=== PATIENT | male | born 1960 | race Two or more races ===

== ENCOUNTER 2024-07-12 00:15 | Emergency (ER) | payer MEDICARE, MEDICAID, SELFPAY ==
[2024-07-12] VITALS (33 sets, daily range): BP systolic 128–166; BP diastolic 60–83; PULSE 69–86; RESP 15–30; TEMP 35.8–36.9; O2SAT 93–100
--- NOTE | 2024-07-12 | XR_ITS ---
Examination: IR placement temporary dialysis catheter. Ultrasound-guided needle placement right subclavian vein. Fluoroscopy AP Chest, portable single view Exam date and time: July 12, 2024 0910 hours INDICATIONS: Patient's fistula is clotted, patient requires stat dialysis. Informed consent provided Technique: A timeout was completed, verifying correct patient, procedure, site, positioning, and special equipment if applicable The patient was placed in a dependent position appropriate for dialysis catheter placement based on the vein to be cannulated. The patient's right neck and chest was prepped and draped in sterile fashion. Maximum Sterile Barrier Technique used including cap, mask, sterile gown, sterile gloves, and sterile full body drape. If ultrasound technique used: sterile gel and sterile probe covers. Hand Hygiene performed using proper scrub, soap and water, or alcohol-based hand rub. Site right portable apparatus utilized to confirm patency of the right subclavian vein Utilizing ultrasonographic guidance successful 21-gauge needle puncture into the right subclavian vein Ultrasound images were recorded and stored. Successful micropuncture with a 21-gauge needle was performed. 0.18 wire guide was introduced into the IVC under fluoroscopic guidance. The wires is then exchanged for a 0.25 J-wire guide placed in the vena cava. Dilators placed over the wire guide followed by a 24 cm 11 Greenlandic temporary dialysis catheter in proper position in the SVC Successful aspiration of blood and flushing with heparinized saline is then performed in the 3 venous limbs. The catheter is sutured in place to the skin and a sterile dressing applied. Perfusion to the extremity distal to the point of catheter insertion was checked and found to be adequate The attending radiologist was present for the entire procedure Estimated blood loss1 cc. Findings: Under fluoroscopy, the tip of the catheter is in good position in the vena cava. Portable chest x-ray, post dialysis catheter placement, as ordered. Impression: Successful ultrasound-guided needle placement right subclavian vein. Successful temporary dialysis catheter insertion. Fluoroscopy 0.1 minute radiation dose 2.07 milligray 1 spot fluoroscopic chest film. AP portable chest completion procedure demonstrates satisfactory position dialysis catheter tip SVC. May use dialysis catheter
[2024-07-12 02:10] LABS: Basophils # (Auto) 0.1 Thou/mm3 (0.0-0.2); Basophils % (Auto) 1 % (0-2.5); Eosinophils # (Auto) 0.6 Thou/mm3 (0.0-0.5); Eosinophils % (Auto) 8 % (0-10); Hematocrit 25.4 % (41.0-53.0); Hemoglobin 9.4 g/dL (13.5-16.0); Immature Granulocytes % (Auto) 0 % (0-0); Immature Granulocytes Auto 0.01 Thou/mm3 (0.00-0.00); Lymphocytes % (Auto) 49 % (10-50); Mean Corpuscular Hemoglobin 33.6 pg (25.0-35.0); Mean Corpuscular Volume 91 fL (80-100); Monocytes % (Auto) 13 % (0-12); Neutrophils # (Auto) 2.3 Thou/mm3 (1.8-7.7); Neutrophils % (Auto) 29 % (37-80); Nucleated Red Blood Cell % 0 /100 WBC (0); Platelet Count 193 Thou/mm3 (140-440); RDW Standard Deviation 39.9 fL (35.1-43.9)
[2024-07-12 02:26] LABS: Alanine Aminotransferase < 7 U/L (10-49); Albumin, Serum 4.3 gm/dL (3.4-4.8); Albumin/Globulin Ratio 1.4 (1.2-2.2); Alkaline Phosphatase 87 U/L (46-116); Anion Gap 16 (7-16); Aspartate Amino Transferase 23 U/L (0-34); BUN/Creatinine Ratio 10 Ratio (12-20); Bilirubin,Total 0.2 mg/dL (0.3-1.2); Blood Urea Nitrogen 94 mg/dL (9-23); Calcium 8.3 mg/dL (8.3-10.6); Calcium (Corrected) 8.3 mg/dL (8.5-10.1); Chloride 97 mMol/L (98-107); Creatinine (Component) 9.4 mg/dL (0.6-1.3); Globulin 3.1 gm/dL (2.3-3.5); Glucose 158 mg/dL (74-106); Osmolality,Calculated 307 (275-295); Potassium 3.6 mMol/L (3.4-5.1); Sodium 138 mMol/L (136-145); Total Protein 7.4 gm/dL (5.7-8.2); eGFR 6 See Note
--- NOTE | 2024-07-12 02:47 | PD.EDADULT ---
ED General RME/HPI General Chief complaint: General Adult/Misc Complain Stated complaint: AMS Time Seen by Provider: 07/12/24 02:47 Arrival date/time: 07/12/24 00:15 Limitations: no limitations RME / HPI RME / HPI narrative: Dr. Lombardi's Main ED Evaluation: 64yo male RYDER from home presents to the ED for AMS. Per EMS, blood sugar was 37 and patient was given D10 en route. Patient's states he only got an hour of dialysis yesterday due to there being something in the fistula . notes the patient has been short of breath. Daughter states the patient has had the fistula for a year and a half and had a recent routine cleaning of the fistula on Monday. They deny cough, congestion, fever, chills or any other associated symptoms. Claims Specialist is Dr. Ayala. Patient follows Dr. Samayoa at [facility] in [place]. 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, HTN, HLD, CAD s/p stent, DM2 with neuropathy, ESRD (//Mon) Related Data Home Medications ?Medication ?Instructions ?Recorded ?Confirmed atorvastatin 80 mg tablet 80 mg PO QPM 01/14/23 08/03/23 carvedilol 25 mg tablet 25 mg PO BID 01/14/23 08/03/23 glipizide 5 mg tablet 5 mg PO BID 01/14/23 08/03/23 losartan 25 mg tablet 25 mg PO QDAY 01/14/23 08/03/23 omega 5-sjf-ohh-fish oil 900 1 cap PO QDAY 01/14/23 08/03/23 mg-1,400 mg capsule,delayed release B-complex with vitamin C 1 tab PO QDAY 08/01/23 08/03/23 amlodipine 10 mg tablet 10 mg PO QDAY 08/01/23 08/03/23 aspirin 81 mg tablet,delayed 81 mg PO QDAY 08/01/23 08/03/23 release calcium acetate 667 mg tablet 667 mg PO TID 08/01/23 08/03/23 ergocalciferol (vitamin D2) 1,250 1,250 mcg PO QWEEK 01/09/24 01/09/24 mcg (50,000 unit) capsule (Drisdol) Previous Rx's ?Medication ?Instructions ?Recorded pantoprazole 40 mg granules 40 mg PO BID 30 days #60 ea 01/04/23 delayed-release for susp in packet (Protonix) Allergies Allergy/AdvReac Type Severity Reaction Status Date / Time levofloxacin Allergy Severe Rash Verified 08/03/23 06:46 Review of Systems Review of Systems Systems Reviewed: All systems reviewed, normal except as documented Past Medical History Past Medical History NEUROLOGIC: Positive Neurological Disorders and Cerebrovascular Accident (right sided weakness, face droop, speech, dysphagia); Negative Seizures CARDIAC: Positive Cardiac Disorders, Myocardial Infarction, Coronary Artery Disease, Atherosclerotic Heart Disease, Hypercholesterolemia, Congestive Heart Failure and Hypertension RESPIRATORY: Negative Chronic Obstructive Pulmonary Disease (COPD) GASTROINTESTINAL: Positive Gastrointestinal Disorders, Ulcer and Obesity GENITOURINARY: Positive Genitourinary Disorders, Renal Disease and Dialysis (//Mon) MUSCULOSKELETAL: Negative Musculoskeletal Disorders ENT: Positive Cataracts ENDOCRINE: Positive Endocrine Disorders and Diabetes Mellitus Type 2; Negative Diabetes Mellitus Type 1 HEMATOLOGIC: Negative Blood Disorders PSYCHO/SOCIAL: Positive Anxiety OTHER HISTORY: Positive Hospitalization (stroke, surgeries); Negative Autoimmune Disease, Shingles or Cancer Family History FAMILY HISTORY: Negative Family Psychiatric Problems, Family Respiratory Disorders, Family Cardiac Disorders, Family Gastrointestinal Problems, Family Cancer, Family Surgery or Family Anesthesia Reaction Surgical History SURGICAL: Positive Cardiac Surgery (coronary bypass one vessel), Coronary Stent and Pacemaker Social History SMOKING STATUS: Unknown if ever smoked ED Exam General Limitations: Present no limitations General appearance: Present in no apparent distress and other (appears slightly confused, but is able to answer questions; no facial droop; recognizes his ) Head Head exam: Present atraumatic Eye Eye exam: Present normal appearance, PERRL and EOMI ENT ENT exam: Present normal exam, normal oropharynx and mucous membranes moist Neck Neck exam: Present normal inspection, full ROM and trachea midline Chest Chest inspection: Present normal inspection and symmetric chest wall rise Respiratory Respiratory exam: Present normal lung sounds bilaterally Cardiovascular Cardiovascular exam: Present regular rate, normal rhythm and normal heart sounds; Absent systolic murmur or diastolic murmur Abdominal Exam Abdominal exam: Present soft and normal bowel sounds; Absent tenderness Extremities Exam Extremities exam: Present full ROM, normal capillary refill and other (left antecubital fistula does not have a very strong thrill); Absent pedal edema Back Exam Back exam: Present normal inspection and full ROM Neurological Exam Neurological exam: Present alert, oriented X3 and CN II-XII intact Psychiatric Psychiatric exam: Present normal affect and normal mood Skin Skin exam: Present warm, dry, intact and normal color; Absent rash Course Course Course Narrative: CXR is ordered for determining the etiology of shortness of breath. Quality Measures none Orders Category Date Time Status EKG (ED ONLY) *Do not use* NOW Care 07/12/24 00:25 Completed CXRP [XR chest 1V portable] Stat Exams 07/12/24 05:24 Taken EKG (ED Only) Stat Exams 07/12/24 00:25 Ordered US duplex arterial venous comp Stat Exams 07/12/24 04:57 Ordered ABG [Arterial Blood Gas] Stat Lab 07/12/24 03:31 Completed CBC Stat Lab 07/12/24 01:30 Completed CMP [Comprehensive Metabolic Panel] Stat Lab 07/12/24 01:30 Completed Phosphorous Stat Lab 07/12/24 01:30 Completed Dextrose 50% Syr [D50w Syringe Abboject] Med 07/12/24 02:59 Discontinued 50 ml IV X1 ONE Vital Signs Vital signs: Vital Signs Temperature 96.5 F L 07/12/24 00:19 Pulse Rate 71 07/12/24 00:19 Respiratory Rate 15 07/12/24 00:19 Blood Pressure 147/69 H 07/12/24 00:19 Pulse Oximetry (%) 98 07/12/24 00:19 Oxygen Delivery Method Room Air 07/12/24 00:19 Pulse ox is 100% on room air, which is normal according to my interpretation. 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 CXR shows cardiomegaly and pacemaker in place, but no CHF, no pneumothorax, no infiltrate, according to my interpretation. EKG done at 0027, NSR, rate of 69, low voltage, no peak T waves, T-wave inversion in V2, no ST elevations or depressions, likely from old infarct, similar to previous EKG, according to my interpretation. Medications Medications considered but not ordered:: none Medication administrations:: Medication Administration History Discontinued Medications Dextrose (Dextrose 50%-Water Inj 50 Ml Syringe) 50 ml IV X1 ONE Stop: 07/12/24 03:00 Last Admin: 07/12/24 03:04 Dose: 50 ml Documented By: SF see above, if any Consultations Consultation(s) initiated? (list below): No Diagnosis Differential Diagnosis ED Complaint MDM: CHF, dialysis catheter blockage, pneumonia, sepsis, hypoglycemia Most likely diagnosis given after review of the tests above:: Other DDx: electrolyte abnormality, HTN emergency versus urgency, anemia Final Dx: see below Admission Indicated Admission indicated?: not indicated Explain why admission is indicated or not indicated:: Admission criteria is not indicated. Admission Request Was there a request for admission?: No Disposition Plan Disposition Plan: other (specify) (Signed out to Dr. Perales at 0600 pending US.) Medical Decision Making Differential Diagnosis Differential Diagnosis: CHF, dialysis catheter blockage, pneumonia, sepsis, hypoglycemia Lab Data 07/12/24 01:30 07/12/24 01:30 Labs: Lab Results 07/12/24 07/12/24 Range/Units 01:30 03:31 WBC 8.0 (3.8-10.6) Thou/mm3 RBC 2.80 L (4.50-5.90) Miln/mm3 Hgb 9.4 L (13.5-16.0) g/dL Hct 25.4 L (41.0-53.0) % MCV 91 (80-100) fL MCH 33.6 (25.0-35.0) pg MCHC 37.0 (31.0-37.0) g/dl RDW Std Deviation 39.9 (35.1-43.9) fL Plt Count 193 (140-440) Thou/mm3 Neut % (Auto) 29 L (37-80) % Lymph % (Auto) 49 (10-50) % Placer % (Auto) 13 H (0-12) % Eos % (Auto) 8 (0-10) % Baso % (Auto) 1 (0-2.5) % Neut # (Auto) 2.3 (1.8-7.7) Thou/mm3 Lymph # (Auto) 4.0 (1.0-4.8) Thou/mm3 Placer # (Auto) 1.0 H (0.0-0.8) Thou/mm3 Eos # (Auto) 0.6 H (0.0-0.5) Thou/mm3 Baso # (Auto) 0.1 (0.0-0.2) Thou/mm3 Immature Gran # (Auto) 0.01 H (0.00-0.00) Thou/mm3 Absolute Nucleated RBC 0.00 (0.00-0.00) Thou/mm3 Immature Gran % 0 (0-0) % Nucleated RBC % 0 (0) /100 WBC Puncture Site Right Radial ABG pH 7.41 (7.35-7.45) ABG pCO2 43 (32.0-48.0) mmHg ABG pO2 49 L* (83-108) mmHg ABG HCO3 27 H (20-26) mEq/L ABG O2 Saturation 85 L (91-98) % ABG Base Excess 2 (-3-3) FiO2 21 % Sodium 138 (136-145) mMol/L Potassium 3.6 (3.4-5.1) mMol/L Chloride 97 L (98-107) mMol/L Carbon Dioxide 25.0 (20.0-31.0) mMol/L Anion Gap 16 (7-16) BUN 94 H (9-23) mg/dL Creatinine 9.4 H* (0.6-1.3) mg/dL Estim Creat Clear Calc Not Performed. eGFR 6 L* (60 - ) See Note BUN/Creatinine Ratio 10 L (12-20) Ratio Glucose 158 H (74-106) mg/dL Calculated Osmolality 307 H (275-295) Calcium 8.3 (8.3-10.6) mg/dL Corrected Calcium 8.3 L (8.5-10.1) mg/dL Phosphorus 5.5 H (2.4-5.1) mg/dL Total Bilirubin 0.2 L (0.3-1.2) mg/dL AST 23 (0-34) U/L ALT < 7 L (10-49) U/L Alkaline Phosphatase 87 (46-116) U/L Total Protein 7.4 (5.7-8.2) gm/dL Albumin 4.3 (3.4-4.8) gm/dL Globulin 3.1 (2.3-3.5) gm/dL Albumin/Globulin Ratio 1.4 (1.2-2.2) Critical Care Time Critical Care Time Critical Care Time: Yes Total Critical Care Time (min.): 45 Attestation: The high probability of sudden, clinically significant deterioration in the patient?s condition required the highest level of my preparedness to intervene urgently. The services I provided to this patient were to treat and/or prevent clinically significant deterioration. Services included the following: chart data review, reviewing nursing notes and/or old charts, documentation time, configuration management consultant collaboration regarding findings and treatment options, medication orders and management, direct patient care, vital sign assessments and ordering, interpreting and reviewing diagnostic studies and lab tests. Aggregate critical care time includes only time during which I was engaged in work directly related to the patient?s care, as described above, whether at bedside or elsewhere in the Emergency Department. It did not include time spent performing other reported procedures or the services of residents, students, nurses or physician assistants. Discharge Plan Plan Disposition Comment: Stable at sign out Patient condition on transfer: Stable Prescriptions/Referrals Prescriptions/Med Rec: No Action pantoprazole [Protonix] [address] for susp in packet 40 mg PO BID 30 Days Qty: 60 2RF atorvastatin 80 mg Tablet 80 mg PO QPM carvedilol 25 mg Tablet 25 mg PO BID Rx Instructions: must administer with a meal/food losartan 25 mg Tablet 25 mg PO QDAY glipizide 5 mg Tablet 5 mg PO BID omega 4-llr-ixc-fish oil 900-1,400 mg Capsule,Delayed Release(Dr/Ec) 1 cap PO QDAY aspirin 81 mg Tablet,Delayed Release (Dr/Ec) 81 mg PO QDAY amlodipine 10 mg Tablet 10 mg PO QDAY ergocalciferol (vitamin D2) [Drisdol] 1,250 mcg (50,000 unit) Capsule 1,250 mcg PO QWEEK B-complex with vitamin C Tablet 1 tab PO QDAY calcium acetate 667 mg Tablet 667 mg PO TID Referrals: Michael Lopes MD [Primary Care Provider] - In 1 week Problem List Clinical Impression: ESRD (end stage renal disease) Patient/Caregiver Discharge Instructions Print Language: Occitan
[2024-07-12] MEDS: DEXTROSE 50%-WATER INJ 50 ML SYRINGE IV (03:04)
[2024-07-12 03:41] LABS: Base Excess 2 (-3-3); HCO3 27 mEq/L (20-26); Inspired Oxygen, FIO2 21 %; O2 Saturation 85 % (91-98); PCO2 43 mmHg (32.0-48.0); pH, Arterial 7.41 (7.35-7.45)
[2024-07-12 03:46] LABS: Allen Test Performed/OK; Puncture Site Right Radial
[2024-07-12 03:47] LABS: PO2 49 mmHg (83-108)
[2024-07-12 03:48] LABS: Phosphorous 5.5 mg/dL (2.4-5.1)
--- NOTE | 2024-07-12 04:57 | XR_ITS ---
Examination: Duplex scan of the left upper extremity, unilateral left Date and time of exam: July 12, 2024 0538 hrs. Indications: Left arm swelling and pain months Technique: Duplex scan of the extremity veins using B-mode/grayscale imaging and Doppler spectral analysis and color flow Attention is directed to internal echogenicity, compression and augmentation involving these veins, color flow assessment, spectral analysis Findings: Left jugular subclavian axillary cephalic brachial basilic radial and ulnar veins are open The patient's fistula is occluded, no flow Impression: The patient's fistula is occluded, no flow
--- NOTE | 2024-07-12 05:24 | XR_ITS ---
Examination: AP chest single view Technique one AP portable semiupright chest single view Exam date and time: July 12, 2024 0531 hrs. Comparison January 24, 2023 Indications: Shortness of breath today. Findings: Mild prominence left ventricle CABG Unipolar ventricular cardiac lead satisfactory position Mild prominence pulmonary vasculature. No pneumonia or pulmonary edema Impression: Mild prominence pulmonary vasculature
--- NOTE | 2024-07-12 07:33 | PC.NURSE ---
Report received from Keya JIMÉNEZ, pt needs a temporary dialysis catheter insertion. i will take pt to cathlab pre/post op when it is time
--- NOTE | 2024-07-12 07:36 | PC.NURSE ---
Pt aware he's going to senior laboratory technician to have his dialysis catheter changed. a+ox4. Pt denies sob and pain.
--- NOTE | 2024-07-12 08:36 | PC.NURSE ---
Pt still in computer laboratory technician. Left approx 0800. Pt's family now at bedside and asking if pt will have dialysis today because he has not received dialysis since Monday. Yesterday pt was unable to receive any dialysis due to issues with the fistula, per pt's daughter. Unable to reach dialysis nurse to see if pt is scheduled for dialysis today in ED.
--- NOTE | 2024-07-12 08:45 | EDNOTE_ITS ---
Emergency Room Addendum <Tiana Day - Last Filed: 07/12/24 17:18> Addendum Narrative: 0600: Care assumed from Dr. Lombardi, the previous shift emergency physician. Past medical, surgical, social and family history reviewed. Vitals and home medications reviewed. I will assume the care of the patient at this time, pending US report. Please refer to the emergency department record for history and examination from initial visit.? Nursing notes reviewed by me. Vital signs reviewed by me. [facility] medical records reviewed by me. RADIOLOGY Ordering Physician: Ginna Lombardi MD Date of Service: 07/12/24 Procedure(s): US duplex arterial venous comp Accession Number(s): [id number] cc: Michael Lopes MD; Anthony Vasques MD; Ginna Lombardi MD~ Examination: Duplex scan of the left upper extremity, unilateral left Date and time of exam: July 12, 2024 0538 hrs. Indications: Left arm swelling and pain months Technique: Duplex scan of the extremity veins using B-mode/grayscale imaging and Doppler spectral analysis and color flow Attention is directed to internal echogenicity, compression and augmentation involving these veins, color flow assessment, spectral analysis Findings: Left jugular subclavian axillary cephalic brachial basilic radial and ulnar veins are open The patient's fistula is occluded, no flow Impression: The patient's fistula is occluded, no flow Dictated By: Anthony Vasques MD Signed By: <Electronically signed by Anthony Vasques MD in OV> 07/12/24 0721 Ordering Physician: Joby Perales MD Date of Service: 07/12/24 Procedure(s): IR CVP cath insertion Accession Number(s): [id number] cc: Michael Lopes MD; Anthony Vasques MD; Joby Perales MD~ Examination: IR placement temporary dialysis catheter. Ultrasound-guided needle placement right subclavian vein. Fluoroscopy AP Chest, portable single view Exam date and time: July 12, 2024 0910 hours INDICATIONS: Patient's fistula is clotted, patient requires stat dialysis. Informed consent provided Technique: A timeout was completed, verifying correct patient, procedure, site, positioning, and special equipment if applicable The patient was placed in a dependent position appropriate for dialysis catheter placement based on the vein to be cannulated. The patient's right neck and chest was prepped and draped in sterile fashion. Maximum Sterile Barrier Technique used including cap, mask, sterile gown, sterile gloves, and sterile full body drape. If ultrasound technique used: sterile gel and sterile probe covers. Hand Hygiene performed using proper scrub, soap and water, or alcohol-based hand rub. Site right portable apparatus utilized to confirm patency of the right subclavian vein Utilizing ultrasonographic guidance successful 21-gauge needle puncture into the right subclavian vein Ultrasound images were recorded and stored. Successful micropuncture with a 21-gauge needle was performed. 0.18 wire guide was introduced into the IVC under fluoroscopic guidance. The wires is then exchanged for a 0.25 J-wire guide placed in the vena cava. Dilators placed over the wire guide followed by a 24 cm 11 Serbian temporary dialysis catheter in proper position in the SVC Successful aspiration of blood and flushing with heparinized saline is then performed in the 3 venous limbs. The catheter is sutured in place to the skin and a sterile dressing applied. Perfusion to the extremity distal to the point of catheter insertion was checked and found to be adequate The attending radiologist was present for the entire procedure Estimated blood loss1 cc. Findings: Under fluoroscopy, the tip of the catheter is in good position in the vena cava. Portable chest x-ray, post dialysis catheter placement, as ordered. Impression: Successful ultrasound-guided needle placement right subclavian vein. Successful temporary dialysis catheter insertion. Fluoroscopy 0.1 minute radiation dose 2.07 milligray 1 spot fluoroscopic chest film. AP portable chest completion procedure demonstrates satisfactory position dialysis catheter tip SVC. May use dialysis catheter Dictated By: Anthony Vasques MD Signed By: <Electronically signed by Anthony Vasques MD in OV> 07/12/24 1037 Ordering Physician: Ginna Lombardi MD Date of Service: 07/12/24 Procedure(s): XR chest 1V portable Accession Number(s): [id number] cc: Michael Lopes MD; Anthony Vasques MD; Ginna Lombardi MD~ Examination: AP chest single view Technique one AP portable semiupright chest single view Exam date and time: July 12, 2024 0531 hrs. Comparison January 24, 2023 Indications: Shortness of breath today. Findings: Mild prominence left ventricle CABG Unipolar ventricular cardiac lead satisfactory position Mild prominence pulmonary vasculature. No pneumonia or pulmonary edema Impression: Mild prominence pulmonary vasculature Dictated By: Anthony Vasques MD Signed By: <Electronically signed by Anthony Vasques MD in OV> 07/12/24 0722 <Joby Perales MD - Last Filed: 07/12/24 17:23> Addendum Narrative: 0600: Care assumed from Dr. Lombardi, the previous shift emergency physician. Past medical, surgical, social and family history reviewed. Vitals and home medications reviewed. I will assume the care of the patient at this time, pending US report. Please refer to the emergency department record for history and examination from initial visit.? Nursing notes reviewed by me. Vital signs reviewed by me. [facility] records reviewed by me. RADIOLOGY Ordering Physician: Ginna Lombardi MD Date of Service: 07/12/24 Procedure(s): US duplex arterial venous comp Accession Number(s): [id number] cc: Michael Lopes MD; Anthony Vasques MD; Ginna Lombardi MD~ Examination: Duplex scan of the left upper extremity, unilateral left Date and time of exam: July 12, 2024 0538 hrs. Indications: Left arm swelling and pain months Technique: Duplex scan of the extremity veins using B-mode/grayscale imaging and Doppler spectral analysis and color flow Attention is directed to internal echogenicity, compression and augmentation involving these veins, color flow assessment, spectral analysis Findings: Left jugular subclavian axillary cephalic brachial basilic radial and ulnar veins are open The patient's fistula is occluded, no flow Impression: The patient's fistula is occluded, no flow Dictated By: Anthony Vasques MD Signed By: <Electronically signed by Anthony Vasques MD in OV> 07/12/24 0721 Ordering Physician: Joby Perales MD Date of Service: 07/12/24 Procedure(s): IR CVP cath insertion Accession Number(s): [id number] cc: Michael Lopes MD; Anthony Vasques MD; Joby Perales MD~ Examination: IR placement temporary dialysis catheter. Ultrasound-guided needle placement right subclavian vein. Fluoroscopy AP Chest, portable single view Exam date and time: July 12, 2024 0910 hours INDICATIONS: Patient's fistula is clotted, patient requires stat dialysis. Informed consent provided Technique: A timeout was completed, verifying correct patient, procedure, site, positioning, and special equipment if applicable The patient was placed in a dependent position appropriate for dialysis catheter placement based on the vein to be cannulated. The patient's right neck and chest was prepped and draped in sterile fashion. Maximum Sterile Barrier Technique used including cap, mask, sterile gown, sterile gloves, and sterile full body drape. If ultrasound technique used: sterile gel and sterile probe covers. Hand Hygiene performed using proper scrub, soap and water, or alcohol-based hand rub. Site right portable apparatus utilized to confirm patency of the right subclavian vein Utilizing ultrasonographic guidance successful 21-gauge needle puncture into the right subclavian vein Ultrasound images were recorded and stored. Successful micropuncture with a 21-gauge needle was performed. 0.18 wire guide was introduced into the IVC under fluoroscopic guidance. The wires is then exchanged for a 0.25 J-wire guide placed in the vena cava. Dilators placed over the wire guide followed by a 24 cm 11 Serbian temporary dialysis catheter in proper position in the SVC Successful aspiration of blood and flushing with heparinized saline is then performed in the 3 venous limbs. The catheter is sutured in place to the skin and a sterile dressing applied. Perfusion to the extremity distal to the point of catheter insertion was checked and found to be adequate The attending radiologist was present for the entire procedure Estimated blood loss1 cc. Findings: Under fluoroscopy, the tip of the catheter is in good position in the vena cava. Portable chest x-ray, post dialysis catheter placement, as ordered. Impression: Successful ultrasound-guided needle placement right subclavian vein. Successful temporary dialysis catheter insertion. Fluoroscopy 0.1 minute radiation dose 2.07 milligray 1 spot fluoroscopic chest film. AP portable chest completion procedure demonstrates satisfactory position dialysis catheter tip SVC. May use dialysis catheter Dictated By: Anthony Vasques MD Signed By: <Electronically signed by Anthony Vasques MD in OV> 07/12/24 1037 Ordering Physician: Ginna Lombardi MD Date of Service: 07/12/24 Procedure(s): XR chest 1V portable Accession Number(s): [id number] cc: Michael Lopes MD; Anthony Vasques MD; Ginna Lombardi MD~ Examination: AP chest single view Technique one AP portable semiupright chest single view Exam date and time: July 12, 2024 0531 hrs. Comparison January 24, 2023 Indications: Shortness of breath today. Findings: Mild prominence left ventricle CABG Unipolar ventricular cardiac lead satisfactory position Mild prominence pulmonary vasculature. No pneumonia or pulmonary edema Impression: Mild prominence pulmonary vasculature Dictated By: Anthony Vasques MD Signed By: <Electronically signed by Anthony Vasques MD in OV> 07/12/24 0722 The patient left arm AV graft has clotted. And it is no good. Therefore I was able to contact and ask Dr. Anthony Vasques interventional radiologist to insert a Vas-Cath for me. And he was kind enough to do. And he wrote that the Vas-Cath was ready to be used. I then spoke to and discussed with Dr. Ayala, the patient telegraph editor. And she made arrangement for the patient to get the dialysis here in the hospital before DC home. Her instruction, through resident physician under her, is DC the patient home after the dialysis done. And the patient can be follow-up with her sometime next week for her to refer the patient to specialist to take care of the clot at left AV graft. 5:20 PM, the patient is barely returning from dialysis. And he is in a hurry to put on his clothing to walk out. Patient daughter is here. And instruction was given to the patient and and his daughter. Diagnosis: Clogged left AV graft End-stage renal disease on dialysis Dialysis in-house Condition: Stable for DC home DC instruction: Follow-up with Dr. England next week for further care. She will make arrangement for you to see specialist to take care of the clot at left AV graft. Return to the nearest ER for any problem
[2024-07-12] MEDS: fentaNYL CIT INJ 50 mCg/ML AMP 2ML IVP (09:52)
[2024-07-12] MEDS: LIDOCAINE INJ PF 1% 5 ML VIAL 7 ML INFL (09:55)
[2024-07-12] MEDS: HEPARIN SOD LOCK SYR 100 UNIT/ML 500 UNIT STFIELD (09:55)
--- NOTE | 2024-07-12 10:56 | PC.NURSE ---
Pt resting in bed and talking to his daughter at bedside. Temporary dialysis catheter placed to right chest and is ok to use, per phlebotomist medical lab assistant. Pt stable.
--- NOTE | 2024-07-12 11:41 | PC.NURSE ---
Pt sleeping vss.
--- NOTE | 2024-07-12 13:47 | PC.NURSE ---
Pt taken to dialysis at approx 1250. Pt to be off floor for approx 3 hours.
--- NOTE | 2024-07-12 14:13 | ESCONSULT_ITS ---
HPI Data of Consult Consult date: 07/12/24 Primary Care Provider: Michael Lopes MD Consult Narrative Reason for consult: ESRD on hemodialysis, fistula thrombosis History of present illness: The patient is a 64-year-old male with previous medical history of end-stage renal disease on hemodialysis (Monday//Monday), hypertension, CAD s/p pacemaker implantation, type 2 diabetes, s/p CVA who who was brought in by ambulance 07/12/2024 at 00:20 due to low blood sugar, at the arrival GCS was 9, blood pressure 147/63, saturating well on room air, blood sugar was 37. He received D10W on the way, blood sugar improved to 169. He also reported that his dialysis session on was finished early due to absent blood flow through the fistula. ED course: BP 147/69, HR 71, temperature 96.5, saturating well on 1 L O2 NC. Labs were significant for anemia hemoglobin 9.4, ABGs showed pO2 49, bicarb 27, O2 saturation 85, sodium 138, potassium 3.6, BUN 94, creatinine 9.4, glucose 158, corrected calcium 8.3, phosphorus 5.5. Doppler ultrasound of upper extremities showed fistula occlusion, no flow. Patient was transported to Air Saw Operator for IR guided temporary dialysis catheter placement. He tolerated rated the procedure well and started to receive dialysis through temporary catheter. Logging Operations Inspector Dr. Ayala was consulted for ESRD on hemodialysis and fistula thrombosis. The plan is for the patient to finish his dialysis session patient and after that he will be discharged. He will be referred to the [facility] specialist for fistula thrombectomy next week. He will continue with temporary dialysis catheter for now. 06/2024: Patient was seen and examined by the bedside with use of supply chain consultant. Saturates well on room air. He is receiving dialysis. He reports feeling dizzy, improved shortness of breath. He denies chestpain, headache, abdominal pain. Reports his last dialysis session was on this week. The goal is to remove 2 L of fluids. After the dialysis patient will follow up outpatient for the fistula thrombectomy referral at the dialysis center. cc:: cc: Review of Systems Review of Systems Narrative Review of Systems: General: Denies weight loss, fever and chills. HEENT: Denies changes hearing. Reports poor vision in the right eye. Resp: Reports SOB, denies cough and wheezing. CVS: Denies palpitations and CP. GI: Denies abdominal pain, nausea, vomiting and diarrhea. : Denies dysuria and urinary frequency. MSK: Denies myalgia and joint pain. Denies rash and pruritus. Neuro: Denies headache and syncope. Uses walker at home. Psych: Denies recent changes in mood. Denies anxiety and depression. Past Medical History Past Medical History NEUROLOGIC: Positive Neurological Disorders and Cerebrovascular Accident (right sided weakness, face droop, speech, dysphagia); Negative Seizures CARDIAC: Positive Cardiac Disorders, Myocardial Infarction, Coronary Artery Disease, Atherosclerotic Heart Disease, Hypercholesterolemia, Congestive Heart Failure and Hypertension RESPIRATORY: Negative Chronic Obstructive Pulmonary Disease (COPD) GASTROINTESTINAL: Positive Gastrointestinal Disorders, Ulcer and Obesity GENITOURINARY: Positive Genitourinary Disorders, Renal Disease and Dialysis (//Mon) MUSCULOSKELETAL: Negative Musculoskeletal Disorders ENT: Positive Cataracts ENDOCRINE: Positive Endocrine Disorders and Diabetes Mellitus Type 2; Negative Diabetes Mellitus Type 1 HEMATOLOGIC: Negative Blood Disorders PSYCHO/SOCIAL: Positive Anxiety OTHER HISTORY: Positive Hospitalization (stroke, surgeries); Negative Autoimmune Disease, Shingles or Cancer Family History FAMILY HISTORY: Negative Family Psychiatric Problems, Family Respiratory Disorders, Family Cardiac Disorders, Family Gastrointestinal Problems, Family Cancer, Family Surgery or Family Anesthesia Reaction Surgical History SURGICAL: Positive Cardiac Surgery (coronary bypass one vessel), Coronary Stent and Pacemaker Social History SMOKING STATUS: Unknown if ever smoked Exam Vital Signs Temp Pulse Resp BP Pulse Ox O2 Del Method O2 Flow Rate 98.2 F 77 18 151/70 H 94 L Room Air 1 07/12/24 13:26 07/12/24 13:58 07/12/24 13:26 07/12/24 13:58 07/12/24 13:26 07/12/24 12:27 07/12/24 10:00 Narrative Exam Physical Exam General: Awake and in no acute distress. Conversational and non-toxic appearing. HEENT: Normocephalic, atraumatic, mucous membranes moist. Right eye is half closed and opaque. Heart: Regular rate and rhythm, no murmurs. Lungs: Clear to auscultation with no wheezing or crackles. Abdomen: Soft, nondistended, nontender, positive bowel sounds. ?No guarding or rebound tenderness. Neurologic: Alert and oriented x3, no gross neurological deficit, and patient able to move all 4 extremities. Extremities: No edema. Left arm AV fistula - weak murmur, weak thrill and pulsation. Skin: No rash or ecchymoses. Results Labs 07/12/24 01:30 07/12/24 01:30 Labs: Short CBC 07/12/24 Range/Units 01:30 WBC 8.0 (3.8-10.6) Thou/mm3 Hgb 9.4 L (13.5-16.0) g/dL Hct 25.4 L (41.0-53.0) % Plt Count 193 (140-440) Thou/mm3 BMP 07/12/24 01:30 Sodium 138 Potassium 3.6 Chloride 97 L Carbon Dioxide 25.0 BUN 94 H Creatinine 9.4 H* Glucose 158 H Calcium 8.3 Liver Function 07/12/24 Range/Units 01:30 Total Bilirubin 0.2 L (0.3-1.2) mg/dL AST 23 (0-34) U/L ALT < 7 L (10-49) U/L Alkaline Phosphatase 87 (46-116) U/L Albumin 4.3 (3.4-4.8) gm/dL ABG Interpretation ABG results: 07/12/24 03:31 ABG pH 7.41 ABG pCO2 43 ABG pO2 49 L* ABG HCO3 27 H ABG O2 Saturation 85 L ABG Base Excess 2 Quality Measures Quality Measures none Medications Home Medications and Allergies Home Medications ?Medication ?Instructions ?Recorded ?Confirmed ?Type atorvastatin 80 mg tablet 80 mg PO QPM 01/14/23 08/03/23 History carvedilol 25 mg tablet 25 mg PO BID 01/14/23 08/03/23 History glipizide 5 mg tablet 5 mg PO BID 01/14/23 08/03/23 History losartan 25 mg tablet 25 mg PO QDAY 01/14/23 08/03/23 History omega 5-gcm-dxe-fish oil 900 1 cap PO QDAY 01/14/23 08/03/23 History mg-1,400 mg capsule,delayed release B-complex with vitamin C 1 tab PO QDAY 08/01/23 08/03/23 History amlodipine 10 mg tablet 10 mg PO QDAY 08/01/23 08/03/23 History aspirin 81 mg tablet,delayed 81 mg PO QDAY 08/01/23 08/03/23 History release calcium acetate 667 mg tablet 667 mg PO TID 08/01/23 08/03/23 History ergocalciferol (vitamin D2) 1,250 1,250 mcg PO QWEEK 08/01/23 08/01/23 History mcg (50,000 unit) capsule (Drisdol) Allergies Allergy/AdvReac Type Severity Reaction Status Date / Time levofloxacin Allergy Severe Rash Verified 08/03/23 06:46 Visit Medications Discontinued Medications Dextrose (Dextrose 50%-Water Inj 50 Ml Syringe) 50 ml IV X1 ONE Stop: 07/12/24 03:00 Last Admin: 07/12/24 03:04 Dose: 50 ml Epoetin Andre (Epoetin Andre-Epbx Inj 10,000 Unit/Ml Vial (Non-Esrd)) 10,000 unit SC X1 ONE Stop: 07/12/24 13:01 Fentanyl Citrate (Fentanyl Cit Inj 50 Mcg/Ml Amp 2ml) 50 mcg IVP X1 ONE Stop: 07/12/24 09:52 Last Admin: 07/12/24 09:52 Dose: 50 mcg Heparin Sodium (Beef Lung) (Heparin Sod Lock Syr 100 Unit/Ml) 500 unit STFIELD X1 ONE Stop: 07/12/24 09:52 Last Admin: 07/12/24 09:55 Dose: 500 unit Lidocaine HCl (Lidocaine Inj Pf 1% 5 Ml Vial) 7 ml INFL X1 ONE Stop: 07/12/24 09:52 Last Admin: 07/12/24 09:55 Dose: 7 ml Assessment & Plan Plan The patient is a 64-year-old male with previous medical history of end-stage renal disease on hemodialysis (Monday//Monday) who who was brought in by ambulance 07/12/2024 at 00:20 due to low blood sugar, at the arrival GCS was 9, blood pressure 147/63, saturating well on room air, blood sugar was 37. He received D10W on the way, blood sugar improved to 169. He also reported that his dialysis session on was finished early due to absent blood flow through the fistula. #ESRD on dialysis (Mon//Mon) #Fistula thrombosis #Chronic anemia Labs showed anemia hemoglobin 9.4, ABGs showed pO2 49, bicarb 27, O2 saturation 85, sodium 138, potassium 3.6, BUN 94, creatinine 9.4, glucose 158, corrected calcium 8.3, phosphorus 5.5. Plan: - continue with dialysis as scheduled using temporary catheter - follow up with referral for thrombectomy at the dialysis center - erythropoetin 55601 U sq once #Type 2 diabetes mellitus #Hypoglycemia, resolved #HTN #s/p CVA #History of CAD, s/p pacemaker placement - management as per primary team Due to episode of hypoglycemia and history of ESRD, patient would benefit from decreasing dose of glipizide. Plan of care discussed with attending Dr. Ayala. Sagrario Galan MD, PGY 1. Attending Provider Attestation/Addendum Patient seen and examined with resident physician Dr. Zabala. Note reviewed, agree with findings and recommendations. Patient has a clotted AV graft. Will send him next week to [facility] for declotting. Vas-Cath was placed by IR. Patient currently seen on dialysis. Tolerating dialysis without any problems. Hemodialysis for 3 hours, 2K, ultrafiltration 2-3 L, Epogen 6000, no heparin ordered. Plan of care discussed with the dialysis nurse. Please see dialysis flowsheet for further details. Postdialysis patient can be discharged. Plan of care discussed with ER provider.
--- NOTE | 2024-07-12 15:30 | PC.NURSE ---
Pt still at dialysis.
[2024-07-12] MEDS: EPOETIN ALFA-EPBX INJ 10,000 UNIT/ML VIAL (NON-ESRD) 10000 UNIT SC (15:37)
--- NOTE | 2024-07-12 16:55 | PC.NURSE ---
pt back from dialysis. Per dialysis nurse, 2 likters of fluid removed, vs: 160/71, 98.4, 98% on RA, 84. Pt stable talking with his daughter at bedside.
--- NOTE | 2024-07-12 17:13 | PC.NURSE ---
Dialysisi completed for 3 hrs. Tolerated well. Able to removed 2000 ml of fluid net. Pt no complaints. Post tx BP 160/71, HR 84, Temp 98.4. Pt no c/o SOB. Resiration even and unlabored, sating at 98% RA. Pt back in ER rm 2. Report given to Keya JIMÉNEZ
== END 2024-07-12 17:41 | disposition home or self-care (01) ==
PROVIDERS: Emergency Medicine; Emergency Provider Emergency Medicine; PCP Family Medicine
DX: T82.868A Thrombosis due to vascular prosthetic devices, implants and grafts, initial encounter (principal); I13.2 Hypertensive heart and chronic kidney disease with heart failure and with stage 5 chronic kidney disease, or end stage renal disease; E11.36 Type 2 diabetes mellitus with diabetic cataract; E11.22 Type 2 diabetes mellitus with diabetic chronic kidney disease; N18.6 End stage renal disease; R94.31 Abnormal electrocardiogram [ECG] [EKG]; I25.10 Atherosclerotic heart disease of native coronary artery without angina pectoris; Z95.0 Presence of cardiac pacemaker; Y83.2 Surgical operation with anastomosis, bypass or graft as the cause of abnormal reaction of the patient, or of later complication, without mention of misadventure at the time of the procedure
CPT/HCPCS: 36556; 36415; 36600; 71045; 77001; 80053; 82803; 84100; 85025; 90935; 93005; 93980; 99291; C1894; J1642; J3010; J3490; J7050; Q5106; G0257